=== PATIENT | female | born 1990 | race Two or more races ===

== ENCOUNTER → 2024-02-14 | Outpatient (CLI) | payer BC, SELFPAY ==
[2024-02-14 15:10] LABS: Glucose Estimated Average 97 mg/dL (80-131)
[2024-02-14 15:22] LABS: Follicle Stimulating Hormone 5.08 mIU/mL (See Note)
[2024-02-21 06:53] LABS: DHEA Sulfate* 135 mcg/dL (23-266); Luteinizing Hormone* 11.4 mIU/mL; Prolactin* 14.7 ng/mL
== END | disposition home or self-care (01) ==
PROVIDERS: Referring Provider Obstetrics & Gynecology; Visit Provider Obstetrics & Gynecology
DX: N91.2 Amenorrhea, unspecified (principal)
CPT/HCPCS: 36415; 82627; 83001; 83002; 83036; 84146; 84443